=== PATIENT | female | born 1970 | race Hispanic/Latino ===

== ENCOUNTER 2022-03-27 09:30 | Observation (INO) | payer OTHER ==
[2022-03-25 09:56] LABS: BASOPHILS # (AUTO) 0.1 (0.0-0.1); BASOPHILS % 0.6 % (0.0-1.0); EOSINOPHILS # (AUTO) 0.2 (0.0-0.4); EOSINOPHILS % 1.8 % (0.0-6.0); LYMPHOCYTES # (AUTO) 1.4 (1.0-3.2); LYMPHOCYTES % 16.7 % (18.0-39.1); MEAN CORPUSCULAR HEMOGLOBIN 26.8 pg (28-32); MEAN CORPUSCULAR HGB CONC 33.3 g/dL (31-35); MEAN CORPUSCULAR VOLUME 80.5 fL (81-99); MONOCYTES # (AUTO) 0.6 (0.2-0.8); MONOCYTES % 7.7 % (4.4-11.3); NEUTROPHILS % 71.9 % (38.7-80.0); PLATELET COUNT 351 x10e3/uL (140-360); RED BLOOD COUNT 5.22 x10e6/uL (3.6-5.1); RED CELL DISTRIBUTION WIDTH 15.3 % (11.7-14.4)
[2022-03-25 10:23] LABS: ANION GAP 15.2 mmol/L (8-16); CALCIUM 8.9 mg/dL (8.4-10.2); CREATININE, SERUM 0.72 mg/dL (0.57-1.11); POTASSIUM 4.2 mmol/L (3.5-5.1)
[~2022-03-27] VITALS: Ht 170.2 cm; Wt 93.9 kg
[~2022-03-27 09:30] MED LIST: ADDERALL 30 MG30 MG PO; CYMBALTA30 MG PO
[2022-03-27] MEDS ORDERED: BUPIVACAINE 0.25% 30ML SDV ONE (11:14)
[2022-03-27] MEDS ORDERED: FENTANYL CITRATE/PF 100MCG/2 ML INJ ONE (13:24)
[2022-03-27] MEDS ORDERED: MIDAZOLAM HCL 2 MG/2 ML VIAL ONE (13:24)
[2022-03-27] MEDS ORDERED: SEVOFLURANE INHAL SOLN 250 ML PEN BTL ONE (13:45)
[2022-03-27] MEDS ORDERED: POVIDONE IODINE 0.05% 0.05 % ML PO ONE (13:45)
[2022-03-27] MEDS ORDERED: PROPOFOL IV EMULSION 10 MG/ML 20 ML VIAL ONE (13:45)
[2022-03-27] MEDS ORDERED: LIDOCAINE HCL 2% LOCAL INJ 5 ML SDV VIAL INJ ONE (13:45)
[2022-03-27] MEDS ORDERED: ROCURONIUM BROMIDE 10 MG/ML 5ML VIAL IV ONE (13:45)
[2022-03-27] MEDS ORDERED: ONDANSETRON HCL INJ 2MG/ML 2ML 2 MG/ML VIAL ONE (13:45)
[2022-03-27] MEDS ORDERED: DEXAMETHASONE SOD PHOS INJ 4 MG/ML SDV ONE (13:45)
[2022-03-27] MEDS ORDERED: KETOROLAC TROMETHAMINE 30 MG/ML VIAL ONE (13:45)
[2022-03-27] MEDS ORDERED: ACETAMINOPHEN 1000 MG/100 ML IV ONE (13:45)
[2022-03-27] MEDS ORDERED: ONDANSETRON HCL INJ 2MG/ML 2ML 2 MG/ML VIAL IV PRN (14:00)
[2022-03-27] MEDS ORDERED: KETOROLAC TROMETHAMINE 30 MG/ML VIAL IV PRN (14:00)
[2022-03-27] MEDS ORDERED: METOCLOPRAMIDE HCL 10 MG/2ML VIAL ONE (14:41)
[2022-03-27] MEDS: SODIUM CHLORIDE 0.9% 1000ML 1,000 ML IV SCH ×2 (16:00→16:16)
[2022-03-27 16:13] VITALS: BP 119/73
[2022-03-27 17:04] VITALS: BP 119/73
[2022-03-27 17:09] VITALS: BP 119/73
[2022-03-27 20:00] VITALS: BP 111/68
[2022-03-27] MEDS: HYDROMORPHONE 1MG/1ML INJ IV PRN (22:15)
[2022-03-28] VITALS: BP 101/67
[2022-03-28] MEDS: HYDROMORPHONE 1MG/1ML INJ IV PRN ×2 (02:48→07:38)
[2022-03-28] MEDS: SODIUM CHLORIDE 0.9% 1000ML 1,000 ML IV SCH ×2 (02:48→13:58)
[2022-03-28 04:00] VITALS: BP 115/69
[2022-03-28 05:53] LABS: BASOPHILS % 0.1 % (0.0-1.0); HEMATOCRIT 36.4 % (34.2-44.1); HEMOGLOBIN 11.2 g/dL (12.0-16.0); LYMPHOCYTES # (AUTO) 1.1 (1.0-3.2); LYMPHOCYTES % 8.4 % (18.0-39.1); MEAN CORPUSCULAR HEMOGLOBIN 26.1 pg (28-32); MEAN CORPUSCULAR HGB CONC 30.8 g/dL (31-35); MEAN CORPUSCULAR VOLUME 84.8 fL (81-99); MONOCYTES # (AUTO) 0.9 (0.2-0.8); MONOCYTES % 6.7 % (4.4-11.3); NEUTROPHILS # (AUTO) 11.4 (2.1-6.9); NEUTROPHILS % 84.4 % (38.7-80.0); PLATELET COUNT 310 x10e3/uL (140-360); RED BLOOD COUNT 4.29 x10e6/uL (3.6-5.1); RED CELL DISTRIBUTION WIDTH 15.3 % (11.7-14.4)
[2022-03-28 06:20] LABS: ANION GAP 14.3 mmol/L (8-16); CALCIUM 7.7 mg/dL (8.4-10.2); CREATININE, SERUM 0.71 mg/dL (0.57-1.11); POTASSIUM 4.3 mmol/L (3.5-5.1)
[2022-03-28 07:51] VITALS: BP 118/71
[2022-03-28 09:05] VITALS: BP 118/71
[2022-03-28 11:27] VITALS: BP 130/73
[2022-03-28] MEDS: HYDROCODONE/APAP 7.5MG-325MG 1 EA TAB PO PRN ×2 (11:42→17:04)
[2022-03-28 16:15] VITALS: BP 122/76
== END 2022-03-28 18:53 | disposition home or self-care (01) ==
LOC: OR 09:30 → PACU V 13:52 → MED/SURG2 15:52
PROVIDERS: ADMIT Surgery; ATTEND Surgery
DX: K43.9 Ventral hernia without obstruction or gangrene (principal); Z98.84 Bariatric surgery status; Z88.2 Allergy status to sulfonamides; E66.9 Obesity, unspecified; Z68.32 Body mass index [BMI] 32.0-32.9, adult; K66.0 Peritoneal adhesions (postprocedural) (postinfection); K21.9 Gastro-esophageal reflux disease without esophagitis; Z01.810 Encounter for preprocedural cardiovascular examination; Z01.812 Encounter for preprocedural laboratory examination; Z20.822 Contact with and (suspected) exposure to COVID-19
CPT/HCPCS: 0223U; 36415 ×2; 49560; 49568; 80048 ×2; 85025 ×2; 88302; 93005; C1781 ×2; G0378 ×2; J0131; J0690 ×2; J1100; J1170 ×2; J1885; J2001; J2250; J2405 ×2; J2704; J2765; J3010; J7030 ×2